=== PATIENT | female | born 1990 | race Asian ===

== ENCOUNTER 2018-08-21 20:12 | Emergency (ER) | payer OTHER, MEDICAID ==
[~2018-08-21] VITALS: Ht 167.6 cm; Wt 72.6 kg
[2018-08-21 20:39] VITALS: BP 130/92
[2018-08-21] MEDS ORDERED: LIDOCAINE 1% (LOCAL ANESTH.) PF 5ml SDV ID ONE (23:15)
[2018-08-21] MEDS ORDERED: BACITRACIN TOP OINT 1 UD PKG TOP ONE (23:15)
[2018-08-22] MEDS ORDERED: LIDOCAINE 1% HCL (LOCAL ANESTH.) INJ 20ML MDV IJ ONE (00:15)
== END 2018-08-22 00:44 | disposition home or self-care (01) ==
LOC: ER 20:17
DX: S01.412A Laceration without foreign body of left cheek and temporomandibular area, initial encounter (principal); S11.91XA Laceration without foreign body of unspecified part of neck, initial encounter; Y08.89XA Assault by other specified means, initial encounter; Y93.89 Activity, other specified; Y99.8 Other external cause status; Y92.89 Other specified places as the place of occurrence of the external cause
CPT/HCPCS: 12001; 12011; 70486; 99284; J2001

== ENCOUNTER 2018-08-31 16:34 | Emergency (ER) | payer MEDICAID, OTHER ==
[~2018-08-31] VITALS: Ht 167.6 cm; Wt 72.6 kg
[2018-08-31 20:48] VITALS: BP 126/57
== END 2018-08-31 21:00 | disposition left against medical advice (07) ==
LOC: ER 16:40
DX: S01.81XD Laceration without foreign body of other part of head, subsequent encounter (principal); Z53.29 Procedure and treatment not carried out because of patient's decision for other reasons; X58.XXXD Exposure to other specified factors, subsequent encounter